=== PATIENT | female | born 1955 | race Caucasian/White ===

== ENCOUNTER → 2023-08-29 08:23 | Outpatient (REF) | payer OTHER, SELFPAY | LOC: RST 08:23 | PROVIDERS: ATTENDING PHYSICIAN Student in an Organized Health Care Education/Training Program | DX: R13.19 Other dysphagia (principal) | CPT/HCPCS: 92611 ==

== ENCOUNTER → 2023-08-29 08:24 | Outpatient (REF) | payer OTHER, SELFPAY | LOC: RAD 08:24 | PROVIDERS: ATTENDING PHYSICIAN Student in an Organized Health Care Education/Training Program | DX: E78.00 Pure hypercholesterolemia, unspecified (principal) | CPT/HCPCS: 74230; 75571 ==

== ENCOUNTER 2023-09-07 13:13 | Outpatient (RCR) | payer OTHER, SELFPAY | END 2023-09-07 23:59 | disposition home or self-care (01) | LOC: RPT 13:13 | PROVIDERS: ATTENDING PHYSICIAN Student in an Organized Health Care Education/Training Program | DX: R26.89 Other abnormalities of gait and mobility (principal); Z73.6 Limitation of activities due to disability; M25.552 Pain in left hip; M25.551 Pain in right hip | CPT/HCPCS: 97110; 97162 ==

== ENCOUNTER 2023-10-06 16:20 | Outpatient (RCR) | payer OTHER, SELFPAY | END 2023-10-06 23:59 | disposition home or self-care (01) | LOC: RPT 16:20 | PROVIDERS: ATTENDING PHYSICIAN Student in an Organized Health Care Education/Training Program | DX: M25.551 Pain in right hip (principal); R26.89 Other abnormalities of gait and mobility; Z73.6 Limitation of activities due to disability | CPT/HCPCS: 97110 ==

== ENCOUNTER → 2023-10-12 14:10 | Outpatient (REF) | payer OTHER, SELFPAY | LOC: WDC 14:10 | PROVIDERS: ATTENDING PHYSICIAN Student in an Organized Health Care Education/Training Program | DX: Z12.31 Encounter for screening mammogram for malignant neoplasm of breast (principal); Z80.3 Family history of malignant neoplasm of breast | CPT/HCPCS: 77063; 77067 ==

== ENCOUNTER 2023-10-28 10:47 | Outpatient (RCR) | payer OTHER, SELFPAY | END 2023-10-28 23:59 | disposition home or self-care (01) | LOC: RPT 10:47 | PROVIDERS: ATTENDING PHYSICIAN Student in an Organized Health Care Education/Training Program | DX: M25.551 Pain in right hip (principal); R26.89 Other abnormalities of gait and mobility; Z73.6 Limitation of activities due to disability | CPT/HCPCS: 97110; 97112 ==

== ENCOUNTER 2024-06-15 00:58 | Inpatient (IN) | payer OTHER, SELFPAY ==
[2024-06-14] VITALS (7 sets, daily range): BP systolic 133–149; BP diastolic 70–77; BMI 25.9
[2024-06-14 17:37] LABS: % Basophils 0.2 % (0-2); % Eosinophils 1.2 % (0-6); % Immature Granulocytes 0.3 % (0-0.5); % Lymphocytes 33.6 % (20.5-51.1); % Neutrophils 59.7 % (42.2-75.2); Absolute Eosinophils 0.1 10^3/uL (0-0.7); Absolute Lymphocytes 2.2 10^3/uL (1.2-3.4); Absolute Monocytes 0.3 10^3/uL (0.1-0.6); Absolute Neutrophils 3.9 10^3/uL (1.4-6.5); Hematocrit 36.5 % (37.0-47.0); Hemoglobin 12.1 g/dL (12.0-16.0); Mean Corp Hgb Conc. 33.2 g/dL (33.0-37.0); Mean Corpuscular Hgb 32.4 pg (27.0-31.0); Mean Corpuscular Volume 97.9 fL (81.0-99.0); Mean Platelet Volume 11.6 fL (7.4-10.4); Nucleated Red Blood Cells % 0 %; Platelet Count 177 10^3/uL (130-400); Red Blood Cell Count 3.73 10^6/uL (4.20-5.40); Red Cell Dist. Width 12.9 % (11.5-14.5); White Blood Cell Count 6.5 10^3/uL (4.8-10.8)
[2024-06-14 17:52] LABS: ALT (SGPT) 30 U/L (0-35); AST (SGOT) 52 U/L (14-36); Albumin 4.2 g/dl (3.5-5.0); Alkaline Phosphatase 181 U/L (38-126); Blood Urea Nitrogen 13 mg/dl (7-17); Calcium 9.2 mg/dl (8.4-10.2); Carbon Dioxide 27 mmol/L (22-30); Chloride 100 mmol/L (98-107); Estimated Creatinine Clearance 76 ml/min; Glucose 116 mg/dl (70-99); Potassium 3.6 mmol/L (3.5-5.1); Sodium 136 mmol/L (135-145); Total Bilirubin 0.6 mg/dl (0.2-1.3); Total Protein 6.9 g/dl (6.3-8.2); eGFR > 60.00
[2024-06-14 18:01] LABS: Troponin I < 0.012 ng/ml
--- NOTE | 2024-06-14 19:48 | ED.GENMED ---
History of Present Illness
<Val Beach DO - Last Filed: 06/18/24 13:43>
General
Chief Complaint: Chest Pain
Time Seen by Provider: 06/14/24 18:21
History of Present Illness
History of Present Illness:
68-year-old female with history of high cholesterol presenting to the emergency department for acute onset of chest pain. Patient reports that she was sitting down around 4 PM and had sternal chest pain, sharp in quality. She denies any known
gastric history or history of gastric reflux. She reports that she eats the same lunch every day, and does not that was causing her symptoms. She called the ambulance with concern for cardiac pathology. Medics administered Zofran, aspirin, nitro.
She reports after receiving medications, did have improvement of her symptoms. Denies any difficulty breathing or history of blood clots. Denies any known cardiac history. Denies recent fever or cough. Denies abdominal pain or GI symptoms or
additional acute medical complaints
Past History
<Val Beach DO - Last Filed: 06/18/24 13:43>
Past History
ED Past Medical History: Other (Seizure disorder)
ED Past Surgical History:
Social History
Tobacco: Former smoker
Alcohol: Occasional
Drug: None
Personal:
Living: with family
Phy Exam
<Val Beach DO - Last Filed: 06/18/24 13:43>
Physical Exam
Physical Exam:
General: Well-appearing, no clinical signs of dehydration, nontoxic and in no acute distress
HEENT: protecting airway
Neck: appears supple
CV: Normal heart rate, regular rhythm
Resp: No accessory muscle use, no increased work of breathing, lungs clear to auscultation bilaterally. Mild tenderness to the midsternal chest wall
Abd: Soft and non-distended, no tenderness
Extremities: No deformities, no swelling, no erythema
Neuro: alert, no focal neurologic deficit
: deferred
Rectal: deferred
Psych: Normal affect
Skin: Intact
Scores
<Val Beach, DO - Last Filed: 06/18/24 13:43>
Heart Score for Chest Pain Patients
STEMI patient?: No
History: Slightly or Non-Suspicious
ECG: Normal
Age: >/= 65 years
Risk Factors: 1 or 2 Risk Factors
Troponin: </= Normal Limit
Heart Score for Chest Pain Patients: 3
Heart Score Risk: 2.5% MACE over next 6 weeks
<Carlos Denise, DO - Last Filed: 06/15/24 00:07>
Heart Score for Chest Pain Patients
Heart Score for Chest Pain Patients: 3
Heart Score Risk: 2.5% MACE over next 6 weeks
Course
<Val Beach, DO - Last Filed: 06/18/24 13:43>
Orders/Labs/Results
Orders:
Orders
06/14/24 17:17
EKG [Electrocardiogram (*1)] Urgent
Reason for Study: Chest Pain
EKG- Treatment ONCE
06/14/24 17:24
Cardiac Monitoring- Treatment ONCE
06/14/24 17:28
Complete Blood Count/With Diff Urgent
Comprehensive Metabolic Panel Urgent
Lipase Urgent
Comment: ADD ON
Troponin I Urgent
06/14/24 18:52
CR Chest - 2 Views Urgent
Comment:
Reason For Exam: chest pain
06/14/24 18:53
EKG- Treatment ONCE
06/14/24 20:25
Electrocardiogram (*1) Urgent
Reason for Study: Chest Pain
06/14/24 20:43
Troponin I Urgent
06/14/24 22:10
Add On- LAB Urgent
Tests Added?: lipase
06/14/24 22:11
CT Abd/pelvis W Iv Cont Urgent
Comment:
Reason For Exam: pain
Morphine Sulfate 4 mg IV NOW STA
Pantoprazole [Protonix IV] 40 mg IV NOW STA
06/15/24 00:06
0.9% Sodium Chloride 1000 ml [Nss] 1,000 ml IV BOLUS
06/15/24 00:47
Admit/Transfer Patient As Directed
Co-Sign Provider:
Level of Care: Inpatient admission
Assign to:: Medical/Surgical
Physician / Group: Remig[facility]
Diagnosis: Acute Pancreatitis
Reason for Hospitalization: Acute Pancreatitis
Expected length of stay greater than two midnights?: Yes
ELOS- Estimated Length of Stay in days: 2
I certify the patient meets the requirements for IP care: Yes
PRN Pain Medication Management As Directed
May give lesser potent ordered pain med per pt: Yes
preference::
Protocol:: Medication orders for pain may be administered in a
manner that supports deferring to patient preference
when the pt is:
- Requesting an ordered lesser potent pain medication.
Least to most potent pain medications are defined
as: acetaminophen < NSAID < tramadol < opioids
(morphine, oxycodone, hydromorphone).
- Requesting a lesser dose of the same medication IF
ORDERED.
- Requesting a less intrusive route of administration
if both routes are prescribed by the provider (PO <
IV).
06/15/24 00:48
Code Status As Directed
Resuscitation Status: Full Code
06/15/24 01:43
Acetaminophen [Tylenol] 650 mg PO Q4HPRN PRN
HYDROmorphone [Dilaudid] 0.5 mg IV Q4HPRN PRN
Lactated Ringers [Lr] 1,000 ml IV 150 mls/hr
Ondansetron Injectable [Zofran] 4 mg IV Q6HPRN PRN
06/15/24 01:43
Consult Notification Routine
Specialty to Notify: Gastroenterology
Date consulting provider notified: 06/15/24
Time consulting provider notified: 07:05
Notified:: Provider
Comment: Dr. Gore notified via tiger text
GASTROINTESTINAL CONSULT Routine
Consulting Provider: Ross Gore
Was physician already notified: No
Reason for consult: Pancreatitis
Activity As Directed
Activity Level: Ambulate
I/O [Intake/ Output] As Directed
Frequency: Per unit guidelines
Pneumatic Compression Sleeves As Directed
Type: Knee high
Vital Signs As Directed
Frequency: Per unit guidelines
Weight As Directed
Frequency: Daily
Oxygen Therapy [O2 Therapy] [RESP] Routine
Titrate/Wean O2 to maintain O2 sat greater than (%): 94
DX Deep Vein Thrombosis Video Routine
06/15/24 Breakfast
Clear Liquid
At Your Request: Full Participation
06/15/24 07:46
Complete Blood Count/No Diff IN AM
06/15/24 22:00
Phenobarbital [Luminal] 129.6 mg PO HS
Abnormal Lab Results
06/14/24
17:28
RBC 3.73 L 10^6/uL
(4.20-5.40)
Hct 36.5 L %
(37.0-47.0)
MCH 32.4 H pg
(27.0-31.0)
MPV 11.6 H fL
(7.4-10.4)
Glucose 116 H mg/dl
(70-99)
AST 52 H U/L
(14-36)
Alkaline Phosphatase 181 H U/L
(38-126)
Lipase > 4000 H* U/L
(23-300)
03/06/25 17:28
06/14/24 17:28
Vital Signs
Initial and Last Documented VS:
Initial Vital Signs
Pulse Resp Pulse Ox
73 18 97
06/14/24 17:18 06/14/24 17:18 06/14/24 17:18
Last Documented Vital Signs
Temp Pulse Resp BP Pulse Ox
98.2 F 104 18 119/83 94
06/18/24 08:00 06/18/24 08:00 06/18/24 08:00 06/18/24 08:00 06/18/24 08:00
<Carlos Denise, DO - Last Filed: 06/15/24 00:07>
Orders/Labs/Results
Orders:
Orders
06/14/24 17:17
EKG [Electrocardiogram (*1)] Urgent
Reason for Study: Chest Pain
EKG- Treatment ONCE
06/14/24 17:24
Cardiac Monitoring- Treatment ONCE
06/14/24 17:28
Complete Blood Count/With Diff Urgent
Comprehensive Metabolic Panel Urgent
Lipase Urgent
Comment: ADD ON
Troponin I Urgent
06/14/24 18:52
CR Chest - 2 Views Urgent
Comment:
Reason For Exam: chest pain
06/14/24 18:53
EKG- Treatment ONCE
06/14/24 20:25
Electrocardiogram (*1) Urgent
Reason for Study: Chest Pain
06/14/24 20:43
Troponin I Urgent
06/14/24 22:10
Add On- LAB Urgent
Tests Added?: lipase
06/14/24 22:11
CT Abd/pelvis W Iv Cont Urgent
Comment:
Reason For Exam: pain
Morphine Sulfate 4 mg IV NOW STA
Pantoprazole [Protonix IV] 40 mg IV NOW STA
06/15/24 00:06
0.9% Sodium Chloride 1000 ml [Nss] 1,000 ml IV BOLUS
06/15/24 00:47
Admit/Transfer Patient As Directed
Co-Sign Provider:
Level of Care: Inpatient admission
Assign to:: Medical/Surgical
Physician / Group: Remigio
Diagnosis: Acute Pancreatitis
Reason for Hospitalization: Acute Pancreatitis
Expected length of stay greater than two midnights?: Yes
ELOS- Estimated Length of Stay in days: 2
I certify the patient meets the requirements for IP care: Yes
PRN Pain Medication Management As Directed
May give lesser potent ordered pain med per pt: Yes
preference::
Protocol:: Medication orders for pain may be administered in a
manner that supports deferring to patient preference
when the pt is:
- Requesting an ordered lesser potent pain medication.
Least to most potent pain medications are defined
as: acetaminophen < NSAID < tramadol < opioids
(morphine, oxycodone, hydromorphone).
- Requesting a lesser dose of the same medication IF
ORDERED.
- Requesting a less intrusive route of administration
if both routes are prescribed by the provider (PO <
IV).
06/15/24 00:48
Code Status As Directed
Resuscitation Status: Full Code
06/15/24 01:43
Acetaminophen [Tylenol] 650 mg PO Q4HPRN PRN
HYDROmorphone [Dilaudid] 0.5 mg IV Q4HPRN PRN
Lactated Ringers [Lr] 1,000 ml IV 150 mls/hr
Ondansetron Injectable [Zofran] 4 mg IV Q6HPRN PRN
06/15/24 01:43
Consult Notification Routine
Specialty to Notify: Gastroenterology
Date consulting provider notified: 06/15/24
Time consulting provider notified: 07:05
Notified:: Provider
Comment: Dr. Gore notified via tiger text
GASTROINTESTINAL CONSULT Routine
Consulting Provider: Ross Gore
Was physician already notified: No
Reason for consult: Pancreatitis
Activity As Directed
Activity Level: Ambulate
I/O [Intake/ Output] As Directed
Frequency: Per unit guidelines
Pneumatic Compression Sleeves As Directed
Type: Knee high
Vital Signs As Directed
Frequency: Per unit guidelines
Weight As Directed
Frequency: Daily
Oxygen Therapy [O2 Therapy] [RESP] Routine
Titrate/Wean O2 to maintain O2 sat greater than (%): 94
DX Deep Vein Thrombosis Video Routine
06/15/24 Breakfast
Clear Liquid
At Your Request: Full Participation
06/15/24 07:46
Complete Blood Count/No Diff IN AM
06/15/24 22:00
Phenobarbital [Luminal] 129.6 mg PO HS
Abnormal Lab Results
06/14/24
17:28
RBC 3.73 L 10^6/uL
(4.20-5.40)
Hct 36.5 L %
(37.0-47.0)
MCH 32.4 H pg
(27.0-31.0)
MPV 11.6 H fL
(7.4-10.4)
Glucose 116 H mg/dl
(70-99)
AST 52 H U/L
(14-36)
Alkaline Phosphatase 181 H U/L
(38-126)
Lipase > 4000 H* U/L
(23-300)
06/14/24 17:28
06/14/24 17:28
Vital Signs
Initial and Last Documented VS:
Initial Vital Signs
Pulse Resp Pulse Ox
73 18 97
06/14/24 17:18 03/06/25 17:18 06/14/24 17:18
Last Documented Vital Signs
Temp Pulse Resp BP Pulse Ox
98.2 F 104 18 119/83 94
06/18/24 08:00 06/18/24 08:00 06/18/24 08:00 06/18/24 08:00 06/18/24 08:00
<Val Beach DO - Last Filed: 06/18/24 13:43>
MDM/Problems Addressed
MDM/Problems Addressed:
68-year-old female with history of high cholesterol presenting for acute onset of midsternal chest pain. Vital signs on arrival are normal.
On exam patient is resting comfortably, no acute distress. Unremarkable cardiac and pulmonary exam. Patient had EKG obtained on arrival, nonischemic, unchanged from prior EKG imaging. Patient with minimal cardiac risk factors, however slightly
concerning story. Labs obtained prior to my assessment, undetectable troponin. Given onset of symptoms, will plan for repeat troponin and EKG as well as chest x-ray. Patient's labs otherwise unremarkable. No PE risk factors. Patient afebrile,
no infectious symptoms or concern for systemic infectious process. Blood pressure within normal limits, patient's pain controlled, without concern for aortic catastrophe or abnormality.
20:30 - Patient signed out to incoming physician pending second troponin and reassessmemt.
<Val Beach DO - Last Filed: 06/18/24 13:43>
*Critical Care Note
Total Time (30-74mins, 75-104mins- exclusive of procedures): Not Applicable
<Carlos Denise DO - Last Filed: 06/15/24 00:07>
Update Note
Update Note:
10:12 PM signed out pending second troponin, patient reevaluated now states the pain is radiating into her lower abdomen labs are noted will add lipase, 2 undetectable troponins 2 nonischemic EKGs, give her PPI morphine check CT scan she still has
her gallbladder and her appendix
11:[address] pending will require admission patient and spouse in agreement
ED Attending Note
<Val Beach DO - Last Filed: 06/18/24 13:43>
-
Portions of this chart may have been created with voice recognition software.� Occasional wrong word or��sound alike� substitutions may have occurred due to the inherent limitations of voice recognition software.
Discharge Plan
Departure
Patient Disposition: Admit
Date of Disposition: 06/15/24
Time of Disposition: 00:06
Presentation/result/management discussed w/ accepting MD/DO: Hospitalist
Patient with high blood pressure during this ER visit?: No
Condition: Fair
Discharge Problem:
Acute pancreatitis
Interventions
Interventions:
*Risk Screen - Suicide Last Done: 06/14/24 17:23
*General Assessment Last Done: 06/14/24 17:23
*Neglect/Abuse Screening Last Done: 06/14/24 17:23
*ED- Fall Risk Assessment Last Done: 06/15/24 01:09
*ED COVID-19 Vaccine History Last Done: 06/15/24 01:09
*Nursing Disposition Last Done: 06/15/24 01:46
ED- Cardiac Assessment Last Done: 06/14/24 19:16
Discharge Date and Time
Discharge Date/Time: 06/15/24 01:47
[2024-06-14 21:21] LABS: Troponin I < 0.012 ng/ml
[2024-06-14] MEDS: MORPHINE SULFATE 4 MG IV (22:15)
[2024-06-14] MEDS: PROTONIX IV 40 MG IV (22:15)
[2024-06-14 23:09] LABS: Lipase > 4000 U/L (23-300)
[2024-06-15] VITALS (8 sets, daily range): BP systolic 56–155; BP diastolic 40–75; PULSE 70–110; O2SAT 92; BMI 24.7
[2024-06-15] MEDS: NSS 1000 IV (00:19)
--- NOTE | 2024-06-15 00:49 | HPS.HSE ---
Family Physician
-
Family Physician: * NONE
Chief Complaint
-
Abd Pain
History of Present Illness
Patient is a 68y F with PMH significant for seizure disorder who presents to ED complaining of abdominal pain. Patient states that she developed sudden onset fo severe epigastric abdominal pain around 3 PM today. She had diaphoresis,
tremulousness, and radiation of the pain into the back / flanks. She denies any N/V. No fevers. Patient denies any prior h/o similar symptoms or episodes.
She has no known history of GB disease. She does not drink alcohol on a regular basis (had a single glass of wine last PM. Does not drink daily).
Patient notes that she (and her ) had GI illness about 2 weeks ago consisting of 48 hours of N/V/D.
Medical History
Past Medical History
Past Medical History: Reports Other
Additional Past Medical History:
Seizure Disorder (most recent seizure 1980s)
Past Surgical History: Reports Other
Additional Past Surgical History:
Carpal Tunnel Repair
Social History
Tobacco: Non-smoker
Alcohol: Occasional
Drug: None
Family History
Family History: Not pertinent
Allergies / Home Medications
Allergies reflects when Allergies were last updated in [facility].
Home Medications with original date entered in [facility]
Allergy/Medication List:
Allergies
Allergy/AdvReac Type Severity Reaction Status Date / Time
diphenhydramine HCl Allergy Unknown Verified 12/21/21 09:36
[From Benadryl]
Home Medications
fluticasone propionate 50 mcg/actuation nasal spray,suspension 1 spray intranasal HS 06/14/24
phenobarbital 64.8 mg tablet 129.6 mg PO HS 06/14/24
therapeutic multivitamin 1 tab PO QPM 06/14/24
Review of Systems
-
History Source: Patient
A 12 point ROS was completed and negative except as noted: Yes
Constitutional: Denies Fever, Fatigue or Chills
EENT: Denies Sore Throat
Respiratory: Denies Cough or Trouble Breathing
Cardiac: Denies Chest Pain or Palpitations
Abdomen/GI: Reports Abdominal Pain; Denies Nausea, Vomiting or Diarrhea
: Reports Flank Pain; Denies Dysuria or Frequency
Neurological: Denies Dizzy or Headache
Psych: Denies Depression or Anxiety
Physical Exam
Vital Signs
Vital Signs
Temp Pulse Resp BP Pulse Ox
98.6 F 84 12 139/71 96
06/14/24 19:16 06/14/24 22:05 06/14/24 22:05 06/15/24 00:19 06/15/24 00:20
Physical Exam
General: Other (68y F in no acute distress.)
HEENT: Moist mucous membranes and PERRLA
Respiratory: Clear; No Wheezes, Rales or Rhonchi
Cardiac: S1/S2 and Regular Rhythm; No Murmur
GI: Soft, Non Distended, Normal Bowel Sounds and Other (Mildly, diffusely tender.)
Musculoskeletal: No Clubbing, No Cyanosis and No Edema
Neuro: AO x 3
Laboratory Results
-
06/14/24 17:28
06/14/24 17:28
Laboratory Results
Total Bilirubin 0.6 mg/dl (0.2-1.3) 06/14/24 17:28
AST 52 U/L (14-36) H 06/14/24 17:28
ALT 30 U/L (0-35) 06/14/24 17:28
Alkaline Phosphatase 181 U/L (38-126) H 06/14/24 17:28
Troponin I < 0.012 ng/ml 06/14/24 20:43
Lipase > 4000 U/L (23-300) H* 06/14/24 17:28
Impression/Plan
-
A/P: Patient is a 68y F with PMH significant for seizure disorder who presents to ED complaining of abdominal pain.
Acute Pancreatitis
- Admit for further evaluation and treatment.
- Clear liquids for now.
- Pain control, IVFs, etc.
- Patient does not have significant history of alcohol use / abuse.
- CT without evidence of gallstones - check US for further evaluation.
- Follow for clinical improvement.
- GI evaluation for additional recommendations.
Seizure Disorder
- Stable. No seizure episodes since .
- Continue current phenobarb regimen without changes.
DVT Prophylaxis: SCDs
Code Status: Full
[2024-06-15] MEDS: LUMINAL 129.6 MG PO ×2 (02:06→21:24)
[2024-06-15] MEDS: DILAUDID 0.5 MG IV ×6 (02:19→23:37)
[2024-06-15] MEDS: LR 1000 IV ×5 (03:26→23:06)
--- NOTE | 2024-06-15 04:13 | PTCARENOTE ---
admitted to room 1142-1- ax3 ambulates in room abd pain medicated with Dilaudid- pt was concerned about missing her seizure med- order received to give this shift- fluids running per orderers
--- NOTE | 2024-06-15 06:21 | PTCARENOTE ---
pt with pain that required additional dilaudid dose ordered by proof press operator see mar
[2024-06-15] MEDS: PROTONIX IV 40 MG IV (08:10)
[2024-06-15 08:11] LABS: Hematocrit 37.4 % (37.0-47.0); Hemoglobin 12.5 g/dL (12.0-16.0); Mean Corp Hgb Conc. 33.4 g/dL (33.0-37.0); Mean Corpuscular Hgb 32.6 pg (27.0-31.0); Mean Corpuscular Volume 97.4 fL (81.0-99.0); Platelet Count 173 10^3/uL (130-400); Red Blood Cell Count 3.84 10^6/uL (4.20-5.40); Red Cell Dist. Width 13.1 % (11.5-14.5); White Blood Cell Count 8.4 10^3/uL (4.8-10.8)
[2024-06-15 08:34] LABS: ALT (SGPT) 33 U/L (0-35); AST (SGOT) 41 U/L (14-36); Albumin 3.6 g/dl (3.5-5.0); Alkaline Phosphatase 151 U/L (38-126); Blood Urea Nitrogen 9 mg/dl (7-17); Carbon Dioxide 27 mmol/L (22-30); Chloride 101 mmol/L (98-107); Direct Bilirubin 0.1 mg/dl (0.0-0.4); Estimated Creatinine Clearance 76 ml/min; Glucose 112 mg/dl (70-99); Potassium 4.1 mmol/L (3.5-5.1); Sodium 136 mmol/L (135-145); Total Bilirubin 0.7 mg/dl (0.2-1.3); Total Protein 6.2 g/dl (6.3-8.2); eGFR > 60.00
--- NOTE | 2024-06-15 08:56 | CON.GI ---
Addendum entered and electronically signed by Ross Gore MD 06/15/24 10:46:
I saw and examined the patient.
The DRY MAN or PA's note was reviewed and I agree with the note.
Comment:
Pt is a 68 y/o with acute abd pain. hx of nsaids but 3 weeks ago. no n/v. feels better now
abd: epigastric tenderness
ct scan: peripancreatic inflammation
labs with only mildly elevated alp/ast
impression:
abd pain
pancreatitis
plan:
IVF
pain control
if continues to improve can have clears
u/s
if all normal and pain continues then egd
follow lipase
Original Note:
Consultation
-
Date/Time Consultation Requested: 06/15/24142
Date/Time Consultation Performed: 06/15/24814
Requesting Provider: Dr. Flood
Performing Provider: Dr. Gore / Daya Yan PA-C
Reason for Consultation: abdominal pain
Medical History
Chief Complaint / HPI
Chief Complaint: abdominal pain
History of Present Illness:
This is a 68 year old female with a past medical history of seizure disorder who developed sudden onset of severe epigastric pain yesterday while at rest. The pain radiated into her back and flanks. +diaphoresis. She did not have any chest pain or
SOB but questioned whether she was having a heart attack. No associated nausea, vomiting, fever, chills or diarrhea. She has never experienced anything like this. Initial workup in the ER included labs showing normal WBC count (8.4) and stable
hemoglobin (12.5) with normocytic indices. LFTs showed mildly elevated AST (52), normal ALT (30), T bili (0.7) and elevated alk phos (181), which she states is a chronically mildly elevated due to phenobarbital. Lipase was >[address] imaging
revealed peripancreatic inflammatory changes consistent with acute pancreatitis. No pancreatic fluid collection noted. She denies a prior history of pancreatitis. She has no known gallstones and denies any new medications or supplements. She does
not smoke or use drugs. She does drink alcohol, about 1 glass of wine/night. US of the abdomen has been ordered, still pending.
Past Medical History
Past Medical History: Seizures ((stable, follows with Neurology, on phenobarbital and states last seizure was >40 years ago))
Past Surgical History: and Other (carpal tunnel repair)
Social History
Tobacco: Non-Smoker
Alcohol: Daily (1 glass of wine/day)
Drug: None
Personal:
Living: With Family
Family History
Family History: Other (no family history of GI malignancies)
Allergies / Home Medications
Allergy/AdvReac Type Severity Reaction Status Date / Time
diphenhydramine HCl Allergy Unknown Verified 12/21/21 09:36
[From Benadryl]
�Medication �Instructions �Recorded
fluticasone propionate 50 1 spray intranasal HS 06/14/24
mcg/actuation nasal
spray,suspension
phenobarbital 64.8 mg tablet 129.6 mg PO HS 06/14/24
therapeutic multivitamin 1 tab PO QPM 06/14/24
Review of Systems
-
History Source: Patient
All other systems: A 12 pt ROS was Negative except as stated above in HPI
Vital Signs
Temp Pulse Resp BP Pulse Ox
98.7 F 76 16 107/60 95
06/15/24 07:10 06/15/24 07:28 06/15/24 07:10 06/15/24 07:28 06/15/24 07:10
Physical Exam
Exam
General: Well Developed, Well Nourished and No Apparent Distress
Respiratory: Clear
Cardiac: Regular Rhythm
GI: Soft, Non Distended, Normal Bowel Sounds and Tender (+mild epigastric tenderness)
Skin: Warm and Dry
Neuro: AO x 3
Psych: Calm
Results
WBC 8.4 10^3/uL (4.8-10.8) 06/15/24 07:46
Hgb 12.5 g/dL (12.0-16.0) 06/15/24 07:46
Hct 37.4 % (37.0-47.0) 06/15/24 07:46
MCV 97.4 fL (81.0-99.0) 06/15/24 07:46
Plt Count 173 10^3/uL (130-400) 06/15/24 07:46
Absolute Neuts (auto) 3.9 10^3/uL (1.4-6.5) 06/14/24 17:28
Sodium 136 mmol/L (135-145) 06/15/24 07:46
Potassium 4.1 mmol/L (3.5-5.1) 06/15/24 07:46
Chloride 101 mmol/L (98-107) 06/15/24 07:46
Carbon Dioxide 27 mmol/L (22-30) 06/15/24 07:46
BUN 9 mg/dl (7-17) 06/15/24 07:46
Creatinine 0.5 mg/dL (0.6-1.0) L 06/15/24 07:46
Calcium 9.0 mg/dl (8.4-10.2) 06/15/24 07:46
Total Bilirubin 0.7 mg/dl (0.2-1.3) 06/15/24 07:46
AST 41 U/L (14-36) H 06/15/24 07:46
ALT 33 U/L (0-35) 06/15/24 07:46
Alkaline Phosphatase 151 U/L (38-126) H 06/15/24 07:46
Lipase > 4000 U/L (23-300) H* 06/14/24 17:28
Diagnostic Image Results:
CT Abdomen/pelvis 06/14/24:
Peripancreatic inflammatory changes compatible with acute pancreatitis. No abnormal well-formed pancreatic/peripancreatic fluid collection.
Left renal simple cysts. Additional bilateral subcentimeter low-attenuation renal lesions too small to characterize.
Prior GI Procedures:
EGD: never
Colonoscopy: negative Cologuard ~3 years ago
Assessment / Plan
-
68 year old female with a history of seizure disorder admitted after sudden onset of severe epigastric pain, with her first episode of acute pancreatitis. Lipase was >[address] imaging revealed peripancreatic inflammatory changes consistent with
acute pancreatitis, without any pancreatic fluid collection noted. LFTs showed mildly elevated AST (52), normal ALT (30), T bili (0.7) and elevated alk phos (181), which she states is a chronically mildly elevated due to phenobarbital. She has no
known gallstones. No new medications or supplements. She does not smoke or use drugs. She does drink alcohol, about 1 glass of wine/night.
IMPRESSION / PLAN:
Acute pancreatitis, initial episode - secondary to gallstones vs ETOH (although she denies excessive use) vs medications vs autoimmune vs ?
- continue clear liquids
- continue IV fluids
- antiemetics and pain management per hospitalist
- trend labs (CBC, LFTs)
- await US to assess for underlying biliary issue - rule out gallstones
- if US negative, order IgG4 to rule out autoimmune pancreatitis
Elevated alkaline phosphatase
- chronic per patient, due to phenobarbital
- will continue to trend LFTs
Other medical issues managed per hospitalist.
-
-
Thank you for consultation and allowing me to participate in the patient's care. Please call the provisioning specialist GI physician during the after hours with any questions or concerns.
--- NOTE | 2024-06-15 09:05 | W.PN.HOSP.TC ---
Today's Communication/Plan
-
Bowel rest
IVF ( high rate)
IF PPI
Pain medicine
Can give sips
Assessment / Plan
Assessment / Plan
Physical Exam
General: Other (68y F in no acute distress.)
HEENT: Moist mucous membranes and PERRLA
Respiratory: Clear; No Wheezes, Rales or Rhonchi
Cardiac: S1/S2 and Regular Rhythm; No Murmur
GI: Soft, Non Distended, Normal Bowel Sounds and epigasrtic/ mid abdomen tenderness ( mild)
Musculoskeletal: No Clubbing, No Cyanosis and No Edema
Neuro: AO x 3, she followed commands.
Psych: calm
Patient is a 68y F with PMH significant for seizure disorder who presents to ED complaining of abdominal pain.
Acute Pancreatitis
She denies nausea
still abdominal pain
keep bowel rest
given higher rate IVF
Add IV PPI
No history of recent new medications
No fever or leukocytosis
Patient does not have significant history of alcohol use / abuse.
CT without evidence of gallstones -
- GI evaluation for additional recommendations.
# Hypotension due to poor oral intake
given Bolus
Seizure Disorder
- Stable. No seizure episodes since .
- Continue current phenobarb regimen without changes.
DVT Prophylaxis: SCDs
Code Status: Full
Total time spent to see the patient, examine the patient, review data and lab results, discuss treatment plan with patient and nursing staff around 55 minutes
Anticipated Discharge: 24 - 48 hours
Subjective/Interval History
-
Date of Service: June 15, 2024
Objective Data
-
Labs:
Laboratory Results
06/15/24
07:46
WBC 8.4
Hgb 12.5
Hct 37.4
Plt Count 173
Sodium 136
Potassium 4.1
Chloride 101
Carbon Dioxide 27
BUN 9
Creatinine 0.5 L
Glucose 112 H
Calcium 9.0
Total Bilirubin 0.7
AST 41 H
ALT 33
Alkaline Phosphatase 151 H
Vital Signs:
Vital Signs
Temp Pulse Resp BP Pulse Ox
98.7 F 76 16 107/60 95
06/15/24 07:10 06/15/24 07:28 06/15/24 07:10 06/15/24 07:28 06/15/24 07:10
I&O
06/14/24 06/15/24 06/16/24
06:59 06:59 06:59
Intake Total 1240 / 1240
Balance 1240 / 1240
[2024-06-15 09:19] LABS: Hepatitis C Antibody Negative (Negative)
--- NOTE | 2024-06-15 09:58 | CM ---
Patient seen at bedside. Patient stated that she lives with in a split level home. Patient with 6 steps to enter. Patient PCP is Dr. Santos and she uses the [facility] on [address] in [place]. Patient stated that she plans to go home
and is uncertain of her needs for VN at discharge. CM will continue to follow for discharge planning needs.
Plan; home with VN vs home with no needs.
[2024-06-16] MEDS: LR 1000 IV ×4 (03:46→22:46)
[2024-06-16] MEDS: DILAUDID 0.5 MG IV ×4 (05:00→21:32)
[2024-06-16 06:00] VITALS: BMI 24.4
[2024-06-16 06:28] LABS: Blood Urea Nitrogen 7 mg/dl (7-17); Calcium 8.6 mg/dl (8.4-10.2); Carbon Dioxide 23 mmol/L (22-30); Chloride 103 mmol/L (98-107); Estimated Creatinine Clearance 76 ml/min; Glucose 72 mg/dl (70-99); Lipase 211 U/L (23-300); Potassium 3.9 mmol/L (3.5-5.1); Sodium 133 mmol/L (135-145); eGFR > 60.00
--- NOTE | 2024-06-16 06:45 | W.PN.GI.CBS2 ---
Addendum entered and electronically signed by Ross Gore MD 06/16/24 09:26:
I saw and examined the patient.
The DAY CARE AIDE or PA's note was reviewed and I agree with the note.
Comment:
Pt w/o significant abdominal pain. back pain due to bed
abd: soft, nontender
impression:
pancreatitis improving
plan:
clear liquids and if tolerated advance diet to full at lunch and advance as tolerated for goal of low fat diet (order in)
await u/s
Original Note:
Today's Communication / Plan
-
Advance clear liquids
Await US
Assessment / Plan
-
68 year old female with a history of seizure disorder admitted after sudden onset of severe epigastric pain, with her first episode of acute pancreatitis. Lipase was >[address] imaging revealed peripancreatic inflammatory changes consistent with
acute pancreatitis, without any pancreatic fluid collection noted. LFTs showed mildly elevated AST (52), normal ALT (30), T bili (0.7) and elevated alk phos (181), which she states is a chronically mildly elevated due to phenobarbital. She has no
known gallstones. No new medications or supplements. She does not smoke or use drugs. She does drink alcohol, about 1 glass of wine/night.
IMPRESSION / PLAN:
Acute pancreatitis, initial episode - secondary to gallstones vs ETOH (although she denies excessive use) vs medications vs autoimmune vs ?
- clear liquid diet
- continue IV fluids
- antiemetics and pain management per hospitalist
- trend labs (CBC, LFTs)
- await US to assess for underlying biliary issue - rule out gallstones
- if US negative, order IgG4 to rule out autoimmune pancreatitis
Elevated alkaline phosphatase
- chronic per patient, due to phenobarbital
- will continue to trend LFTs
Subjective
Subjective
Date of Service: June 16, 2024
Feeling better, the upper abdominal pain has decreased. No nausea, vomiting. She did not yet start on clears.
She does complain of low back pain, bilaterally. No urinary sx. She thinks it may be from sleeping in the hospital bed.
Objective
Data Reviewed
Laboratory Data:
Laboratory Results
06/15/24 07:46
06/16/24 05:14
Laboratory Results
Total Bilirubin 0.7 mg/dl (0.2-1.3) 06/15/24 07:46
AST 41 U/L (14-36) H 06/15/24 07:46
ALT 33 U/L (0-35) 06/15/24 07:46
Alkaline Phosphatase 151 U/L (38-126) H 06/15/24 07:46
Lipase 211 U/L (23-300) 06/16/24 05:14
Vital Signs and I&O:
Vital Signs
Temp Pulse Resp BP Pulse Ox
99.9 F 98 16 129/67 93
06/15/24 23:15 06/15/24 23:15 06/15/24 23:15 06/15/24 23:15 06/15/24 23:15
I&O
06/14/24 06/15/24 06/16/24
06:59 06:59 06:59
Intake Total 1240 / 1240 4400 / 4400
Balance 1240 / 1240 4400 / 4400
Physical Exam
Physical Exam
HEENT: Anicteric
Cardiology: Normal Sinus Rhythm
Pulmonary: Clear
GI: Soft, Non Distended, Non Tender and Normal Bowel Sounds
Neuro: Non Focal
[2024-06-16 07:39] VITALS: BP 107/55
[2024-06-16] MEDS: PROTONIX IV 40 MG IV (08:12)
--- NOTE | 2024-06-16 09:03 | W.PN.HOSP.TC ---
Today's Communication/Plan
-
Lower rate of IV fluid, start liquid diet, monitor
Likely discharge in a.m.
Assessment / Plan
Assessment / Plan
Physical Exam
General: Other (68y F in no acute distress.)
HEENT: Moist mucous membranes and PERRLA
Respiratory: Clear; No Wheezes, Rales or Rhonchi
Cardiac: S1/S2 and Regular Rhythm; No Murmur
GI: Soft, Non Distended, Normal Bowel Sounds and epigasrtic/ mid abdomen tenderness ( mild)
Musculoskeletal: No Clubbing, No Cyanosis and No Edema
Neuro: AO x 3, she followed commands.
Psych: calm
Patient is a 68y F with PMH significant for seizure disorder who presents to ED complaining of abdominal pain.
Acute Pancreatitis
She denies nausea
Much less abdominal pain. No fever. No leukocytosis. Nontoxic-appearing
keep bowel rest
given higher rate IVF, will lower it
Add IV PPI
Order US by GI, normal bilirubin.
No history of recent new medications
No fever or leukocytosis
Patient does not have significant history of alcohol use / abuse.
CT without evidence of gallstones -
- GI evaluation for additional recommendations.
# Hypotension due to poor oral intake
given Bolus , now better BP.
# Hyponatremia, mild
cut back on IVF
# Seizure Disorder
- Stable. No seizure episodes since .
- Continue current phenobarb regimen without changes.
DVT Prophylaxis: SCDs
Code Status: Full
Total time spent to see the patient, examine the patient, review data and lab results, discuss treatment plan with patient and nursing staff around 55 minutes
Anticipated Discharge: Within 24 hours
Subjective/Interval History
-
Date of Service: June 16, 2024
Less pain in abdomen
No nausea
No chills
Objective Data
-
Labs:
Laboratory Results
06/16/24
05:14
Sodium 133 L
Potassium 3.9
Chloride 103
Carbon Dioxide 23
BUN 7
Creatinine 0.5 L
Glucose 72
Calcium 8.6
Vital Signs:
Vital Signs
Temp Pulse Resp BP Pulse Ox
99.2 F 94 18 107/55 93
06/16/24 07:39 06/16/24 07:39 06/16/24 07:39 06/16/24 07:39 06/16/24 07:39
I&O
06/15/24 06/16/24 06/17/24
06:59 06:59 07:59
Intake Total 1240 / 1240 4400 / 4400
Balance 1240 / 1240 4400 / 4400
[2024-06-16] MEDS: LR IV ×6 (09:26→09:27)
--- NOTE | 2024-06-16 09:49 | CM ---
CM reviewed medical records. Plan for discharge in AM.
PLAN: home no needs.
[2024-06-16 15:14] VITALS: BP 132/69
[2024-06-16] MEDS: TORADOL 30 MG IV (16:30)
[2024-06-16 19:00] VITALS: BP 155/86
--- NOTE | 2024-06-16 20:14 | W.PN.UPDATE ---
Update Note
Progress Note Update
Patient complained of SOB and epigastric pain, and feels bloated. Patient started on diet today.
SPo2 94% RA, afebrile temp 98.2,hr 102, RR18 BP155/86.
Covid test is neg on 06/15.
Neg troponin x2 on admission
R lung noted with wheezing during the exam. Patient denied history of asthma.
Stat chest x-ray and Xopenex PRN nebs ordered.
+bowel sounds, abdomen nontender, soft. Simethicone ordered.
[2024-06-16] MEDS: MYLICON 80 MG PO (20:24)
[2024-06-16] MEDS: XOPENEX 0.63 MG INHALANT SOLUTION INH (20:48)
--- NOTE | 2024-06-16 21:14 | PTCARENOTE ---
Pt c/o epigastric pressure and difficulty catching her breath. Stated it started after eating dinner. R base lung diminished. Pt walked in hallway and belched several times-symptoms slightly better but still there. House AGRICULTURE INSPECTOR up to see pt. Pt med
with simethicone. CXR done. Pt placed on O2 2L NC. Neb given. Symptoms improved at this time. Will continue to monitor.
[2024-06-16] MEDS: LUMINAL 129.6 MG PO (21:32)
[2024-06-16 23:00] VITALS: BP 114/55
[2024-06-17] MEDS: DILAUDID 0.5 MG IV ×3 (01:00→22:16)
[2024-06-17 05:02] VITALS: BMI 24.9
--- NOTE | 2024-06-17 06:06 | W.PN.GI.CBS2 ---
Today's Communication / Plan
-
hold on full liquids
Assessment / Plan
-
68 year old female with a history of seizure disorder admitted after sudden onset of severe epigastric pain, with her first episode of acute pancreatitis. Lipase was >[address] imaging revealed peripancreatic inflammatory changes consistent with
acute pancreatitis, without any pancreatic fluid collection noted. LFTs showed mildly elevated AST (52), normal ALT (30), T bili (0.7) and elevated alk phos (181), which she states is a chronically mildly elevated due to phenobarbital. She has no
known gallstones. No new medications or supplements. She does not smoke or use drugs. She does drink alcohol, about 1 glass of wine/night.
IMPRESSION / PLAN:
Acute pancreatitis, unclear etiology, ultrasound negative for stones
- hold on full liquids
- continue IV fluids
- need accurate urine outputs (d/w nurse)
- reorder IgG4 and trigylcerides
- simethicone and suppository
- lipase now normal. if not better consider MRCP to look better at the biliary tree and r/o divisum
- unclear if this may be related to phenobarbital
Subjective
Subjective
Date of Service: June 17, 2024
Pt had some indigestion last night, felt abdominal d/c but not sure if it was because she is getting constipated. walked around. still taking pain meds. better with semithicone
Objective
Data Reviewed
Laboratory Data:
Laboratory Results
06/15/24 07:46
06/16/24 05:14
Laboratory Results
Total Bilirubin 0.7 mg/dl (0.2-1.3) 06/15/24 07:46
AST 41 U/L (14-36) H 06/15/24 07:46
ALT 33 U/L (0-35) 06/15/24 07:46
Alkaline Phosphatase 151 U/L (38-126) H 06/15/24 07:46
Lipase 211 U/L (23-300) 06/16/24 05:14
Vital Signs and I&O:
Vital Signs
Temp Pulse Resp BP Pulse Ox
98.2 F 94 18 114/55 93
06/16/24 23:00 06/16/24 23:00 06/16/24 23:00 06/16/24 23:00 06/16/24 23:00
I&O
06/15/24 06/16/24 06/17/24
06:59 06:59 07:59
Intake Total 1240 / 1240 4400 / 4400 3580 / 3580
Balance 1240 / 1240 4400 / 4400 3580 / 3580
Physical Exam
Physical Exam
GI: Soft and Tender (mildly tender left mid/lower abdomen)
Neuro: Non Focal
[2024-06-17] MEDS: LR 1000 IV (06:08)
[2024-06-17 07:28] VITALS: BP 116/61
[2024-06-17] MEDS: PROTONIX IV 40 MG IV (07:40)
[2024-06-17] MEDS: LR IV (07:40)
[2024-06-17] MEDS: DULCOLAX 10 MG RECTAL (07:55)
--- NOTE | 2024-06-17 08:05 | PTCARENOTE ---
Addendum entered by Berenice Fried RN 06/17/24 08:22:
Discussed importance of incentive spirometry. Patient demonstrates understanding. Only able to achieve volume of 500ml on incentive spirometer.
Original Note:
Assumed care at 0700. VSS. Requiring 2L O2, satting 91-92%. Unable to wean off oxyugen or SaO2 drops to 88% on room air. Dr. Chin aware. Awaiting incentive spirometer from [facility]. Encouraged mobility, patient currently sitting in chair.
[2024-06-17 08:06] LABS: Hematocrit 35.2 % (37.0-47.0); Hemoglobin 11.9 g/dL (12.0-16.0); Mean Corp Hgb Conc. 33.8 g/dL (33.0-37.0); Mean Corpuscular Volume 94.6 fL (81.0-99.0); Mean Platelet Volume 11.9 fL (7.4-10.4); Platelet Count 171 10^3/uL (130-400); Red Blood Cell Count 3.72 10^6/uL (4.20-5.40); Red Cell Dist. Width 13.2 % (11.5-14.5); White Blood Cell Count 9.7 10^3/uL (4.8-10.8)
[2024-06-17] MEDS: TORADOL 15 MG IV ×2 (08:10→16:27)
[2024-06-17 09:16] LABS: ALT (SGPT) 17 U/L (0-35); AST (SGOT) 23 U/L (14-36); Albumin 2.8 g/dl (3.5-5.0); Alkaline Phosphatase 122 U/L (38-126); Blood Urea Nitrogen 4 mg/dl (7-17); Calcium 8.6 mg/dl (8.4-10.2); Carbon Dioxide 31 mmol/L (22-30); Chloride 100 mmol/L (98-107); Estimated Creatinine Clearance 76 ml/min; Glucose 123 mg/dl (70-99); Potassium 3.7 mmol/L (3.5-5.1); Sodium 134 mmol/L (135-145); Total Bilirubin 0.5 mg/dl (0.2-1.3); Total Protein 5.4 g/dl (6.3-8.2); eGFR > 60.00
--- NOTE | 2024-06-17 09:23 | W.PN.HOSP.TC ---
Addendum entered and electronically signed by Stephanie Chin MD 06/17/24 14:14:
Addendum
Evaluated the patient again, she tolerated lunch. She is complaining of lower back pain. Will add as needed Flexeril. She diuresed well after IV Lasix almost 1 L. Weaning off oxygen, currently on room air. Discussed with patient and her
, encourage ambulation.
End
Original Note:
Today's Communication/Plan
-
likely likely discharge in a.m.
Goal to wean off oxygen
IV Lasix for pulmonary congestion
Stop IV fluid
Advance diet as tolerated
Discussed with GI doctor later this morning, agreed to the plan
Assessment / Plan
Assessment / Plan
Physical Exam
General: Other (68y F in no acute distress.)
HEENT: Moist mucous membranes and PERRLA
Respiratory: Basal Rales, no wheezes.
Cardiac: S1/S2 and Regular Rhythm; No Murmur
GI: Soft, Non Distended, Normal Bowel Sounds. No tenderness on exam ( deep palpation)
Musculoskeletal: No Clubbing, No Cyanosis and No Edema
Neuro: AO x 3, she followed commands.
Psych: calm
Patient is a 68y F with PMH significant for seizure disorder who presents to ED complaining of abdominal pain.
Acute Pancreatitis
Abdominal pain is less
Lipase came down to normal
No leukocytosis
She denies nausea, she is tolerating oral intake
US and CT no biliary dilation.
Normal LFT
No history of recent new medications
No fever or leukocytosis
Patient does not have significant history of alcohol use / abuse.
CT without evidence of gallstones -
- GI evaluation for additional recommendations.
# Acute hypoxic respiratory insufficiency
No Chest pain or cough
Unable to wean off nasal O2
Chest x ray showing bilateral effusion/atelectasis with pulmonary congestion. Suspect noncardiogenic acute pulmonary edema secondary to acute illness and IV fluid
Will give IV Lasix
Hold further IV fluid as patient is tolerating orally
# Hyponatremia, mild
No confusion
# Seizure Disorder
- Stable. No seizure episodes since .
- Continue current phenobarb regimen without changes.
DVT Prophylaxis: SCDs
Code Status: Full
Total time spent to see the patient, examine the patient, review data and lab results, discuss treatment plan with patient and nursing staff around 55 minutes
Anticipated Discharge: Within 24 hours
Subjective/Interval History
-
Date of Service: June 17, 2024
Less abd pain
less nausea
Had SOB over night
Objective Data
-
Labs:
Laboratory Results
06/17/24 06/17/24
07:52 08:49
WBC 9.7
Hgb 11.9 L
Hct 35.2 L
Plt Count 171
Sodium Cancelled 134 L
Potassium Cancelled 3.7
Chloride Cancelled 100
Carbon Dioxide Cancelled 31 H
BUN Cancelled 4 L
Creatinine Cancelled 0.5 L
Glucose Cancelled 123 H
Calcium Cancelled 8.6
Total Bilirubin Cancelled 0.5
AST Cancelled 23
ALT Cancelled 17
Alkaline Phosphatase Cancelled 122
Vital Signs:
Vital Signs
Temp Pulse Resp BP Pulse Ox
100.0 F 92 18 116/61 92
06/17/24 07:28 06/17/24 07:28 06/17/24 07:28 06/17/24 07:28 06/17/24 07:45
I&O
06/16/24 06/17/24 06/18/24
05:59 06:59 06:59
Intake Total 510 / 510
Output Total 400 / 400
Balance 110 / 110
[2024-06-17] MEDS: LASIX 40 MG IV (10:11)
[2024-06-17] MEDS: MYLICON 80 MG PO ×2 (10:11→18:18)
[2024-06-17] MEDS: TYLENOL 650 MG PO (13:29)
--- NOTE | 2024-06-17 14:17 | PTCARENOTE ---
Weaned off oxygen, SaO2 92% on room air. Dr. Elsy barboza.
--- NOTE | 2024-06-17 14:29 | CM ---
CM reviewed medical records. Patient remains acutely ill. CM will continue to follow for needs.
[2024-06-17 15:22] VITALS: BP 120/73
[2024-06-17] MEDS: LUMINAL 129.6 MG PO (20:56)
[2024-06-17] MEDS: FLEXERIL 5 MG PO (20:56)
[2024-06-17 23:00] VITALS: BP 147/54
[2024-06-18] MEDS: TORADOL 15 MG IV (01:45)
--- NOTE | 2024-06-18 01:58 | PTCARENOTE ---
Patient with SOB with activity, Pulse ox 84-85 % on RA, applied oxygen at 2L n/c, sat-95%. will continue to monitor
[2024-06-18 06:00] VITALS: BMI 25.8
--- NOTE | 2024-06-18 06:51 | W.PN.UPDATE ---
Update Note
Progress Note Update
patient with c/o sob after activity, oxygen sat only- 85% on RA. Placed patient on 2l n/c.. yesterday she had a dose of lasix 40 IV X1 dose with almost 2L urine output. but today she gained almost 2.5 kg ( 65.8 to 68.2) Will add another Lasix 40 mg
IV x1.
[2024-06-18] MEDS: LASIX 40 MG IV ×2 (07:04→15:02)
[2024-06-18] MEDS: FLUSH (NSS) 1 FLUSH IV (07:43)
[2024-06-18] MEDS: NSS (PRESERVATIVE FREE) 10 ML IV (07:44)
[2024-06-18] MEDS: PROTONIX IV 40 MG IV (07:44)
[2024-06-18 08:00] VITALS: BP 119/83
[2024-06-18 08:27] LABS: Hematocrit 35.4 % (37.0-47.0); Hemoglobin 11.7 g/dL (12.0-16.0); Mean Corp Hgb Conc. 33.1 g/dL (33.0-37.0); Mean Corpuscular Hgb 32.7 pg (27.0-31.0); Mean Corpuscular Volume 98.9 fL (81.0-99.0); Mean Platelet Volume 12.6 fL (7.4-10.4); Platelet Count 153 10^3/uL (130-400); Red Blood Cell Count 3.58 10^6/uL (4.20-5.40); Red Cell Dist. Width 13.2 % (11.5-14.5); White Blood Cell Count 6.2 10^3/uL (4.8-10.8)
--- NOTE | 2024-06-18 08:30 | W.PN.HOSP.TC ---
Today's Communication/Plan
-
Cardiology eval. PT eval
Assessment / Plan
Assessment / Plan
Physical exam:
General: Well Developed, Well Nourished and mild apparent Distress
HEENT: Normocephalic, Atraumatic and Moist Mucous Membranes
Respiratory: Decreased breath sounds bilaterally in the bases; Negative Wheezes, Rales or Rhonchi
Cardiac: Regular Rhythm and S1/S2
GI: Soft, Nontender and Nondistended
Musculoskeletal: No Clubbing, No Cyanosis and some Edema
Neuro: Awake, Alert and Oriented, no neurological deficits
Psych: Calm
A/P:
Acute pancreatitis:
Improving
Lipase back to normal
Received IV fluid
On low residue diet
Appreciated GI consult who feels etiology was probably microlithiasis
Volume overload:
Due to extra IV fluid. Not sure if evidence of heart failure so we will ask cardiology for input
Repeat chest x-ray today and shows worsening bilateral pleural effusions-could be related to hypoalbuminemia, pancreatitis itself, or ultimately heart failure.
Obtain BNP today
Diuresis as needed and then might consider thoracentesis
Acute respiratory insufficiency:
Chest x-ray today
Oxygen as needed and wean as able
Cardio eval
Acute lower back pain:
Musculoskeletal
Lidoderm patch
PT eval
Pain control
Hyponatremia:
Improving
DVT prophylaxis:
On SCDs, but start Lovenox today
CODE STATUS:
Full code
Total time spent on today's encounter was 52 minutes which included time spent in counseling the patient/family regarding diagnosis and treatment plan as listed above, goals of care, and symptom management. Case was discussed with nursing staff,
specialists, and care coordinators/case management. All labs and imaging personally reviewed by me. Remainder the time spent in detailed review of previous records, lab data, imaging, and other medical provider documentation.
Anticipated Discharge: > 48 hours
Subjective/Interval History
-
Date of Service: June 18, 2024
Patient still having abdominal discomfort but much less than before. She is also having shortness of breath and peripheral edema and decreased exercise tolerance. Afebrile.
Objective Data
-
Labs:
Laboratory Results
06/18/24
07:15
WBC 6.2
Hgb 11.7 L
Hct 35.4 L
Plt Count 153
Sodium Pending
Potassium Pending
Chloride Pending
Carbon Dioxide Pending
BUN Pending
Creatinine Pending
Glucose Pending
Calcium Pending
Vital Signs:
Vital Signs
Temp Pulse Resp BP Pulse Ox
98.2 F 104 18 119/83 94
06/18/24 08:00 06/18/24 08:00 06/18/24 08:00 06/18/24 08:00 06/18/24 08:00
I&O
06/17/24 06/18/24 06/19/24
06:59 06:59 06:59
Intake Total 1230 / 1230
Output Total 2550 / 2550 700 / 700
Balance -1320 / -1320 -700 / -700
[2024-06-18 08:46] LABS: Blood Urea Nitrogen 5 mg/dl (7-17); Calcium 8.7 mg/dl (8.4-10.2); Carbon Dioxide 37 mmol/L (22-30); Chloride 99 mmol/L (98-107); Estimated Creatinine Clearance 76 ml/min; Glucose 100 mg/dl (70-99); Potassium 3.6 mmol/L (3.5-5.1); Sodium 138 mmol/L (135-145); Triglycerides 54 mg/dl (10-149); eGFR > 60.00
--- NOTE | 2024-06-18 09:08 | W.PN.GI.CBS2 ---
Today's Communication / Plan
-
continue low fat diet
Assessment / Plan
-
68 year old female with a history of seizure disorder admitted after sudden onset of severe epigastric pain, with her first episode of acute pancreatitis. Lipase was >[address] imaging revealed peripancreatic inflammatory changes consistent with
acute pancreatitis, without any pancreatic fluid collection noted. LFTs showed mildly elevated AST (52), normal ALT (30), T bili (0.7) and elevated alk phos (181), which she states is a chronically mildly elevated due to phenobarbital. She has no
known gallstones. No new medications or supplements. She does not smoke or use drugs. She does drink alcohol, about 1 glass of wine/night.
IMPRESSION / PLAN:
Acute pancreatitis, unclear etiology, ultrasound negative for stones
- tolerating low fat diet
- w/u negative though feel this was microlithiasis by the acute drop in lipase
- agree with continuing to diurese as she was fluid overloaded
will sign off
we will make her a f/u in our GI office and our staff will call her for that appointment. Pt aware
Subjective
Subjective
Date of Service: June 18, 2024
Pt has no abdominal pain, tolerated low fat diet Biggest issue is sob from all the fluid she received
Objective
Data Reviewed
Laboratory Data:
Laboratory Results
06/18/24 07:15
06/18/24 07:15
Laboratory Results
Total Bilirubin 0.5 mg/dl (0.2-1.3) 06/17/24 08:49
AST 23 U/L (14-36) 06/17/24 08:49
ALT 17 U/L (0-35) 06/17/24 08:49
Alkaline Phosphatase 122 U/L (38-126) 06/17/24 08:49
Lipase 211 U/L (23-300) 06/16/24 05:14
Vital Signs and I&O:
Vital Signs
Temp Pulse Resp BP Pulse Ox
98.2 F 104 18 119/83 94
06/18/24 08:00 06/18/24 08:00 06/18/24 08:00 06/18/24 08:00 06/18/24 08:00
I&O
06/17/24 06/18/24 06/19/24
06:59 06:59 06:59
Intake Total 1230 / 1230
Output Total 2550 / 2550 1100 / 1100
Balance -1320 / -1320 -1100 / -1100
Physical Exam
Physical Exam
GI: Soft and Non Tender
[2024-06-18 11:00] VITALS: BP 110/71; BP 79/58; PULSE 113; PULSE 99; O2SAT 93
[2024-06-18 11:22] LABS: NT-proBNP 183 pg/ml
--- NOTE | 2024-06-18 14:11 | CON.CAR ---
Addendum entered and electronically signed by Peter Altamirano DO 06/18/24 14:53:
I saw and examined the patient.
The [employer] Bonding Machine Operator's note was reviewed and I agree with the note.
Comment:
Plan:
Received 11 L IVF as part of tx for pancreatitis and now is volume overloaded.
Cont IV lasix diuresis and increase to lasix 40 mg IV BID
Check echo, prior echo EF was preserved.
EKG no acute changes
Troponins negative X 2.
Original Note:
Consultation
Consultation Request
Date/Time Consultation Requested: 06/18/24
Date/Time Consultation Performed: 06/18/24
Requesting Provider: Luke David
Performing Provider: Dr. Altamirano
Reason for Consultation: Acute HFpEF
Medical History
-
History of Present Illness:
Patient came to ER last with chest pain and was admitted with pancreatitis and cardiology is now consulted for acute HF. Patient was at home on when she started with substernal chest pain with radiation. In the ER patient was
eventually found to have elevated lipase and was admitted with pancreatitis. Patient was given 11 L of IVF's which were stopped on 06/17/24. Patient noted improved abdominal pain but increased bloating in that time and then increased SOB and was
given Lasix 40 mg IV x 1 on 06/17/2024 and 06/18/2024. Patient reports brisk diuresis, but only minimal improvement in SOB. Patient has never had pancreatitis before nor has she had acute HF. She had an echo back in 2018 that showed a preserved EF
and she reports that she was previously told she had MVP, but no evidence of this on the last echo. She was recently seen in the office 01/2024 for for risk factor assessment and the plan was to follow-up on some labs and perhaps order an echo at a
follow-up visit 07/2024. Currently patient reports ongoing BUNCH, but no recurrence of CP.
PMH:
h/o seizure disorder
Past Medical History
Past Medical History: Other (in HPI)
Past Surgical History: and Orthopedic
Social History
Tobacco: Former Smoker
Alcohol: Daily (1 glass of wine a day)
Drug: None
Personal:
Living: With Family
Family History
Family History: CAD and Hypertension
Allergies / Home Medications
Allergy/AdvReac Type Severity Reaction Status Date / Time
diphenhydramine HCl Allergy Unknown Verified 12/21/21 09:36
[From Benadryl]
�Medication �Instructions �Recorded �Confirmed �Type
fluticasone propionate 50 1 spray intranasal HS 06/14/24 06/14/24 History
mcg/actuation nasal
spray,suspension
phenobarbital 64.8 mg tablet 129.6 mg PO HS 06/14/24 06/14/24 History
therapeutic multivitamin 1 tab PO QPM 06/14/24 06/14/24 History
Review of Systems
-
History Source: Patient
All other systems: Negative unless noted
Physical Exam
Vital Signs
Temp Pulse Resp BP Pulse Ox
98.2 F 104 18 119/83 94
06/18/24 08:00 06/18/24 08:00 06/18/24 08:00 06/18/24 08:00 06/18/24 08:00
GEN: NAD. AAOx3
HEENT: EOMI, MMM
LUNGS: 2 L NC. No audible wheeze
CV: SR on tele. Reg
EXT: Trace B/L LE edema
NEURO: Gross non-focal
SKIN: Warm, dry and pink. No rash
Lab Results
06/18/24 07:15
06/18/24 07:15
Troponin I < 0.012 ng/ml 06/14/24 20:43
[facility] Pept 183 pg/ml 06/18/24 07:15
Impression / Plan
-
PCP: Dr. Nicolette Jones
Card: Dr. Jonas
Impression:
Admitted with chest pain and pancreatitis 06/14/24
Acute pancreatitis
Acute hypoxic respiratory insufficiency
Acute HFpEF
h/o seizure disorder
Echo 11/21/18: EF 55-60%, no WMA, normal diastolic function
Echo 06/18/24: Preliminarily EF normal and no significant valve disease
Plan:
-Patient came to ER last with chest pain and was admitted with pancreatitis and cardiology is now consulted for acute HF. Patient was at home on when she started with substernal chest pain with radiation. In the ER patient was
eventually found to have elevated lipase and was admitted with pancreatitis. Patient was given 11 L of IVF's which were stopped on 06/17/24. Patient noted improved abdominal pain but increased bloating in that time and then increased SOB and was
given Lasix 40 mg IV x 1 on 06/17/2024 and 06/18/2024. Patient reports brisk diuresis, but only minimal improvement in SOB. Patient has never had pancreatitis before nor has she had acute HF. She had an echo back in 2018 that showed a preserved EF
and she reports that she was previously told she had MVP, but no evidence of this on the last echo. She was recently seen in the office 01/2024 for for risk factor assessment and the plan was to follow-up on some labs and perhaps order an echo at a
follow-up visit 07/2024. Currently patient reports ongoing BUNCH, but no recurrence of CP.
-ECG x 2 reviewed by me shows SR without acute ST changes
-Troponin undetectable x 2 on admission and the CP on admission was likely pancreatitis
-GI notes reviewed and there is suspicion for possible microlithiasis as a source. GI has signed off and will follow-up with patient as an outpatient
-While patient was NPO she was given 11 L of IVF's which were eventually stopped yesterday. In this time weight increased 7 lbs, new symptoms of BUNCH and acute hypoxic respiratory insufficiency. Patient is responding to Lasix 40 mg IV x 1 yesterday
and again today. Will give an additional dose of Lasix 40 mg IV x 1 at 1600 today and then 40 mg IV BID starting tomorrow.
-Await final echo report, but EF previously preserved
-Not clear that patient should had GDMT added in this scenario as this is iatrogenic HF due to IVF's in the setting of acute pancreatitis
--- NOTE | 2024-06-18 14:17 | CM ---
CM reviewed chart
PT eval VN recs vs no needs
Pt remains on 2L O2
May benefit from home O2 eval prior to dc
CM will continue to follow for dc planning
Discharge Dispositio- home, follow for possible VN and O2 needs
[2024-06-18] MEDS: TYLENOL 1000 MG PO ×2 (14:32→21:34)
[2024-06-18] MEDS: LIDOCAINE 4% PATCH 1 PATCH TOPICAL (14:32)
[2024-06-18 14:55] VITALS: BP 116/73; BP 89/57; PULSE 103; PULSE 111
[2024-06-18] MEDS: ProAmatine 2.5 MG PO (15:01)
[2024-06-18 15:13] VITALS: BP 123/65
[2024-06-18] MEDS: LOVENOX 40 MG SC (17:43)
[2024-06-18 19:12] VITALS: BP 116/70
[2024-06-18] MEDS: LUMINAL 129.6 MG PO (21:34)
--- NOTE | 2024-06-18 21:39 | PTCARENOTE ---
Patient requesting for lidocaine patch to be removed later in the night as it got applied afternoon. will continue to monitor.
[2024-06-18 23:04] VITALS: BP 111/67
[2024-06-19 03:55] VITALS: BP 126/68
[2024-06-19] MEDS: TYLENOL 1000 MG PO ×3 (04:59→21:32)
[2024-06-19 06:00] VITALS: BMI 25.2
[2024-06-19 07:56] LABS: Blood Urea Nitrogen 14 mg/dl (7-17); Carbon Dioxide 40 mmol/L (22-30); Chloride 98 mmol/L (98-107); Estimated Creatinine Clearance 76 ml/min; Glucose 115 mg/dl (70-99); Potassium 3.8 mmol/L (3.5-5.1); Sodium 140 mmol/L (135-145); eGFR > 60.00
[2024-06-19] MEDS: PROTONIX 40 MG PO (07:58)
[2024-06-19] MEDS: LASIX 40 MG IV ×2 (07:58→15:57)
[2024-06-19 08:00] VITALS: BP 111/70
--- NOTE | 2024-06-19 08:23 | W.PN.HOSP.TC ---
Today's Communication/Plan
-
IV Lasix.
Assessment / Plan
Assessment / Plan
Physical exam:
General: Well Developed, Well Nourished and no apparent Distress
HEENT: Normocephalic, Atraumatic and Moist Mucous Membranes
Respiratory: Decreased breath sounds bilaterally in the bases; Negative Wheezes, Rales or Rhonchi
Cardiac: Regular Rhythm and S1/S2
GI: Soft, Nontender and Nondistended
Musculoskeletal: No Clubbing, No Cyanosis and some Edema
Neuro: Awake, Alert and Oriented, no neurological deficits
Psych: Calm
A/P:
Acute pancreatitis:
Improving
Lipase back to normal
Received IV fluid
On low residue diet
Appreciated GI consult who feels etiology was probably microlithiasis
Volume overload/acute diastolic heart failure/bilateral pleural effusions:
IV Lasix 40 mg twice a day
Cardiology consult appreciated
Echocardiogram normal EF
Plan to repeat chest x-ray in a.m.
Acute respiratory insufficiency:
Chest x-ray reviewed and bilateral pleural effusions are worsened from yesterday
Oxygen as needed and wean as able
Acute lower back pain:
Musculoskeletal
Lidoderm patch
PT eval
Pain control
Hyponatremia:
Improved
DVT prophylaxis:
Continue Lovenox SQ
CODE STATUS:
Full code
Total time spent on today's encounter was 52 minutes which included time spent in counseling the patient/family regarding diagnosis and treatment plan as listed above, goals of care, and symptom management. Case was discussed with nursing staff,
specialists, and care coordinators/case management. All labs and imaging personally reviewed by me. Remainder the time spent in detailed review of previous records, lab data, imaging, and other medical provider documentation.
Anticipated Discharge: 24 - 48 hours
Subjective/Interval History
-
Date of Service: June 19, 2024
Patient feels better overall. Less shortness of breath. Still on oxygen. Able to eat and drink much better today. Back pain improved as well.
Objective Data
-
Labs:
Laboratory Results
06/19/24
06:59
Sodium 140
Potassium 3.8
Chloride 98
Carbon Dioxide 40 H
BUN 14
Creatinine 0.6
Glucose 115 H
Calcium 9.0
Vital Signs:
Vital Signs
Temp Pulse Resp BP Pulse Ox
98.1 F 83 16 111/70 95
06/19/24 03:55 06/19/24 03:55 06/19/24 03:55 06/19/24 07:58 06/19/24 03:55
I&O
06/18/24 06/19/24 06/20/24
06:59 06:59 06:59
Intake Total 1230 / 1230 480 / 480 480 / 480
Output Total 2550 / 2550 1350 / 1350
Balance -1320 / -1320 -870 / -870 480 / 480
[2024-06-19 11:55] VITALS: BP 111/68
[2024-06-19] MEDS: LIDOCAINE 4% PATCH TOPICAL (13:18)
--- NOTE | 2024-06-19 13:58 | W.PN.CARDCBS ---
Addendum entered and electronically signed by Herman Vasquez MD 06/19/24 18:50:
68-year-old woman with pancreatitis and subsequent acute HFpEF and respiratory insufficiency. Some chest discomfort, but troponin negative x 2. Currently she feels well.
PMH: Seizure disorder
Medications: Phenobarbital, toppers well, Lovenox, furosemide 40 IV twice daily, lidocaine patch
111/72, pulse 85, respirate 16, afebrile Intake and output -1.4 L, weight is 66.4 kg, if accurate down 1.8 kg, no distress sitting comfortably eating, at bedside, diminished breath sounds in bases, neck veins still modestly up, regular rate
and rhythm without obvious murmurs, abdomen benign extremities without much edema
proBNP on June 18 was 183,
ECG normal
BUN/creatinine 14 and 0.6, CO2 is 40, potassium 3.8
Chest x-ray yesterday, bilateral effusions
EF 60-65%, no significant valvular heart disease, could not determine pulmonary artery systolic pressure
Plan:
Overall she looks well, although her neck veins are still up a bit and as of yesterday on her chest x-ray showed impressive effusions that may be related more to sub-diaphragmatic inflammation than heart failure. Her proBNP was never significantly
elevated..
Her weight has dropped roughly 2 kg from its peak, but she is still 5 kg above dry weight. However her bicarbonate is up to 40, suggesting that intravascularly she may be fairly dry.
I will hold a.m. Lasix until she is assessed. I asked her to move around more, and if she has significant dyspnea we can repeat her chest x-ray, consider thoracentesis etc. but would I prefer to hold off if possible.
Hopefully to be discharged on a low-dose of Lasix which can subsequently be discontinued. She will need a follow-up chest x-ray.
We will arrange for cardiac follow-up.
Original Note:
Today's Communication / Plan
-
Cont Lasix 40 mg IV BID
Midodrine PRN
Impression / Plan
-
PCP: Dr. Nicolette Jones
Card: Dr. Jonas
Impression:
Admitted with chest pain and pancreatitis 06/14/24
Acute pancreatitis
Acute hypoxic respiratory insufficiency
Acute HFpEF
h/o seizure disorder
Echo 11/21/18: EF 55-60%, no WMA, normal diastolic function
Echo 06/18/24: EF 60 to 65%, no WMA, no significant valve disease
Plan:
-Weight is down 4 lbs overnight, but remains on 2 L NC.
-On CXR 06/18/2024 there is evidence of a moderate-sized left pleural effusion and a small right pleural effusion. Recheck two-view CXR in AM and if persistent pleural effusion would consider for thoracentesis. On auscultation 06/19/2024 patient
still with diminished breath sounds at bases B/L
-EF preserved by echo without significant valve disease. This appears to be iatrogenic HF due to IVF's (11 L IVFs given) in the setting of acute pancreatitis
-Continue with Lasix 40 mg IV BID. Patient was not taking a diuretic prior to admission. Pending response to diuresis the patient may not need a diuretic upon D/C to home
-Troponin undetectable x 2 on admission and the CP on admission was likely pancreatitis
-GI notes reviewed and there is suspicion for possible microlithiasis as a source. GI has signed off and will follow-up with patient as an outpatient
-Not clear that patient should had GDMT added in this scenario as this is iatrogenic HF due to IVF's in the setting of acute pancreatitis
HPI: Patient came to ER last with chest pain and was admitted with pancreatitis and cardiology is now consulted for acute HF. Patient was at home on when she started with substernal chest pain with radiation. In the ER patient
was eventually found to have elevated lipase and was admitted with pancreatitis. Patient was given 11 L of IVF's which were stopped on 06/17/24. Patient noted improved abdominal pain but increased bloating in that time and then increased SOB and was
given Lasix 40 mg IV x 1 on 06/17/2024 and 06/18/2024. Patient reports brisk diuresis, but only minimal improvement in SOB. Patient has never had pancreatitis before nor has she had acute HF. She had an echo back in 2018 that showed a preserved EF
and she reports that she was previously told she had MVP, but no evidence of this on the last echo. She was recently seen in the office 01/2024 for for risk factor assessment and the plan was to follow-up on some labs and perhaps order an echo at a
follow-up visit 07/2024. Currently patient reports ongoing BUNCH, but no recurrence of CP.
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
Subjective
Date of Service: June 19, 2024
patient was able to have a 15-minute conversation without SOB while her oxygen was off after using the bathroom earlier today
Objective
Labs:
06/18/24 07:15
06/19/24 06:59
Labs
Hgb 11.7 g/dL (12.0-16.0) L 06/18/24 07:15
Hct 35.4 % (37.0-47.0) L 06/18/24 07:15
Plt Count 153 10^3/uL (130-400) 06/18/24 07:15
Sodium 140 mmol/L (135-145) 06/19/24 06:59
Potassium 3.8 mmol/L (3.5-5.1) 06/19/24 06:59
BUN 14 mg/dl (7-17) 06/19/24 06:59
Creatinine 0.6 mg/dL (0.6-1.0) 06/19/24 06:59
Glucose 115 mg/dl (70-99) H 06/19/24 06:59
Vital Signs and I&O:
Vital Signs
Temp Pulse Resp BP Pulse Ox
98.4 F 88 18 111/68 94
06/19/24 11:55 06/19/24 11:55 06/19/24 11:55 06/19/24 11:55 06/19/24 11:55
Vital Signs
Temp Pulse Resp BP Pulse Ox
98.4 F 88 18 111/68 94
06/19/24 11:55 06/19/24 11:55 06/19/24 11:55 06/19/24 11:55 06/19/24 11:55
Intake & Output
06/17/24 06/18/24 06/19/24 06/20/24
06:59 06:59 06:59 06:59
Intake Total 1230 / 1230 480 / 480 480 / 480
Output Total 2550 / 2550 1350 / 1350 1250 / 1250
Balance -1320 / -1320 -870 / -870 -770 / -770
Physical Exam
Physical Exam
GEN: NAD. AAOx3
HEENT: EOMI, MMM
LUNGS: 2 L NC. No audible wheeze
CV: SR on tele. Reg
EXT: Trace B/L LE edema
NEURO: Gross non-focal
SKIN: Warm, dry and pink. No rash
[2024-06-19 15:25] VITALS: BMI 25.2
[2024-06-19] MEDS: LOVENOX 40 MG SC (15:55)
[2024-06-19 15:59] LABS: IgG Subclass 4 12 mg/dL (1-123)
[2024-06-19 16:00] VITALS: BP 111/72
[2024-06-19 19:42] VITALS: BP 154/73
[2024-06-19] MEDS: LIDOCAINE 4% PATCH 1 PATCH TOPICAL (19:44)
[2024-06-19] MEDS: LUMINAL 129.6 MG PO (21:32)
[2024-06-19] MEDS: ULTRAM 50 MG PO (21:34)
[2024-06-19 23:01] VITALS: BP 131/71
[2024-06-20] VITALS (9 sets, daily range): BP systolic 84–145; BP diastolic 63–95; BMI 24.8
[2024-06-20] MEDS: ULTRAM 25 MG PO (04:37)
[2024-06-20] MEDS: TYLENOL 1000 MG PO ×3 (06:44→21:41)
[2024-06-20 07:53] LABS: Blood Urea Nitrogen 14 mg/dl (7-17); Calcium 9.2 mg/dl (8.4-10.2); Chloride 93 mmol/L (98-107); Estimated Creatinine Clearance 76 ml/min; Glucose 100 mg/dl (70-99); Potassium 3.7 mmol/L (3.5-5.1); Sodium 138 mmol/L (135-145); eGFR > 60.00
[2024-06-20 08:13] LABS: Carbon Dioxide 38 mmol/L (22-30)
[2024-06-20] MEDS: PROTONIX 40 MG PO (08:13)
--- NOTE | 2024-06-20 08:32 | W.PN.HOSP.TC ---
Addendum entered and electronically signed by Juan David MD 06/20/24 13:05:
IR will be able to do likely right thoracentesis rather than left.
Original Note:
Today's Communication/Plan
-
Possible thoracentesis or resume IV diuresis.
Assessment / Plan
Assessment / Plan
Physical exam:
General: Well Developed, Well Nourished and no apparent Distress
HEENT: Normocephalic, Atraumatic and Moist Mucous Membranes
Respiratory: Decreased breath sounds bilaterally in the bases; Negative Wheezes, few Rales in the left base and no Rhonchi
Cardiac: Regular Rhythm and S1/S2
GI: Soft, Nontender and Nondistended
Musculoskeletal: No Clubbing, No Cyanosis and some Edema
Neuro: Awake, Alert and Oriented, no neurological deficits
Psych: Calm
A/P:
Acute pancreatitis:
Improved
Lipase back to normal
Received IV fluid
On low residue diet
Appreciated GI consult who feels etiology was probably microlithiasis
Volume overload/acute diastolic heart failure/bilateral pleural effusions:
Holding IV Lasix by cardiology today
Cardiology consult appreciated
Echocardiogram normal EF
Possible thoracentesis-see below
Assess for home oxygen need
Acute hypoxic respiratory failure:
Chest x-ray reviewed and bilateral pleural effusions appear better today. Discussed with cardiology today. Discussed with IR today for possibility of left thoracentesis.
If not thoracentesis, she might require to go back to IV diuresis.
Oxygen as needed and wean as able
Acute lower back pain:
Musculoskeletal
Lidoderm patch
PT eval
Pain control
Hyponatremia:
Improved
DVT prophylaxis:
Continue Lovenox SQ
CODE STATUS:
Full code
Total time spent on today's encounter was 52 minutes which included time spent in counseling the patient/family regarding diagnosis and treatment plan as listed above, goals of care, and symptom management. Case was discussed with nursing staff,
specialists, and care coordinators/case management. All labs and imaging personally reviewed by me. Remainder the time spent in detailed review of previous records, lab data, imaging, and other medical provider documentation.
Anticipated Discharge: 24 - 48 hours
Subjective/Interval History
-
Date of Service: June 20, 2024
Feels better overall but still with some dyspnea and requiring oxygen. Pulse ox 88 to 89% on room air at rest. Afebrile
Objective Data
-
Labs:
Laboratory Results
06/20/24
06:52
Sodium 138
Potassium 3.7
Chloride 93 L
Carbon Dioxide 38 H
BUN 14
Creatinine 0.6
Glucose 100 H
Calcium 9.2
Vital Signs:
Vital Signs
Temp Pulse Resp BP Pulse Ox
97.9 F 77 19 134/64 94
06/20/24 07:30 06/20/24 07:30 06/20/24 07:30 06/20/24 07:30 06/20/24 07:35
I&O
06/19/24 06/20/24 06/21/24
06:59 06:59 06:59
Intake Total 480 / 480 960 / 960
Output Total 1350 / 1350 2950 / 2950
Balance -870 / -870 -1989 /
--- NOTE | 2024-06-20 11:00 | W.PN.CARDCBS ---
Addendum entered and electronically signed by Kael Krishnan MD 06/20/24 15:16:
I saw and examined the patient.
The Craft Superintendent's note was reviewed and I agree with the note.
Comment: Briefly, 68-year-old woman presenting with acute pancreatitis who developed iatrogenic volume overload following fluid resuscitation.
From a GI standpoint seems to be doing better, her appetite is back and she has been tolerating low residue diet.
In regards to her volume overload, had been receiving IV Lasix with improvement in her symptoms but diuretics were held due to contraction alkalosis.
As she was still requiring supplemental oxygen earlier today thoracentesis was performed and following this patient tells me that she feels significantly better.
Oxygen sats in the mid 90s at the time of my evaluation on room air.
As she is significantly improved with a thoracentesis okay to hold off on additional Lasix today and can reevaluate in the morning.
Would consider oral Lasix 40mg daily which could be continued for a short period of time at home, but would not need to be a long-term medication.
Rest per Maral Eaton
Original Note:
Today's Communication / Plan
-
Appreciate help of hospitalist attending coordinating IR consult for residual left pleural effusion
Ongoing hypoxia so pending thoracentesis results will restart Lasix IV
Impression / Plan
-
PCP: Dr. Nicolette Jones
Card: Dr. Jonas
Impression:
Admitted with chest pain and pancreatitis 06/14/24
Acute pancreatitis
Acute hypoxic respiratory insufficiency
Acute HFpEF
h/o seizure disorder
Echo 11/21/18: EF 55-60%, no WMA, normal diastolic function
Echo 06/18/24: EF 60 to 65%, no WMA, no significant valve disease
Plan:
-Weight is down another 2 lbs overnight for a total of at least 6 lbs diuresed this admission.
-CXR repeated 06/20/24 and shows improved B/L pleural effusions, but still looks moderate on the left. TT to hospitalist attending and appreciate the chance to discuss, they will ask IR to evaluate for possible thoracentesis
-Attempted to wean oxygen and patient was 88% on RA so oxygen at 2 L reapplied. Patient was not using oxygen at home prior to admission.
-Bicarbonate was up to 40 on 06/19/24 so Lasix 40 mg IV BID dose was held 06/20/24 AM. Bicarb improved to 38 on 06/20/24, labs reviewed by me
-Pending outcome of IR evaluation will restart Lasix IV. Patient was not taking a diuretic prior to admission.
-EF preserved by echo without significant valve disease. This appears to be iatrogenic HF due to IVF's (11 L IVFs given) in the setting of acute pancreatitis
-Not clear that patient should had GDMT added in this scenario as this is iatrogenic HF due to IVF's in the setting of acute pancreatitis
-Troponin undetectable x 2 on admission and the CP on admission was likely pancreatitis
-GI notes reviewed and there is suspicion for possible microlithiasis as a source. GI has signed off and will follow-up with patient as an outpatient
HPI: Patient came to ER last with chest pain and was admitted with pancreatitis and cardiology is now consulted for acute HF. Patient was at home on when she started with substernal chest pain with radiation. In the ER patient
was eventually found to have elevated lipase and was admitted with pancreatitis. Patient was given 11 L of IVF's which were stopped on 06/17/24. Patient noted improved abdominal pain but increased bloating in that time and then increased SOB and was
given Lasix 40 mg IV x 1 on 06/17/2024 and 06/18/2024. Patient reports brisk diuresis, but only minimal improvement in SOB. Patient has never had pancreatitis before nor has she had acute HF. She had an echo back in 2018 that showed a preserved EF
and she reports that she was previously told she had MVP, but no evidence of this on the last echo. She was recently seen in the office 01/2024 for for risk factor assessment and the plan was to follow-up on some labs and perhaps order an echo at a
follow-up visit 07/2024. Currently patient reports ongoing BUNCH, but no recurrence of CP.
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
Subjective
Date of Service: June 20, 2024
Still SOB, worse with exertion of talking
Objective
Labs:
06/18/24 07:15
06/20/24 06:52
Labs
Hgb 11.7 g/dL (12.0-16.0) L 06/18/24 07:15
Hct 35.4 % (37.0-47.0) L 06/18/24 07:15
Plt Count 153 10^3/uL (130-400) 06/18/24 07:15
Sodium 138 mmol/L (135-145) 06/20/24 06:52
Potassium 3.7 mmol/L (3.5-5.1) 06/20/24 06:52
BUN 14 mg/dl (7-17) 06/20/24 06:52
Creatinine 0.6 mg/dL (0.6-1.0) 06/20/24 06:52
Glucose 100 mg/dl (70-99) H 06/20/24 06:52
Vital Signs and I&O:
Vital Signs
Temp Pulse Resp BP Pulse Ox
97.9 F 77 19 134/64 94
06/20/24 07:30 06/20/24 07:30 06/20/24 07:30 06/20/24 07:30 06/20/24 07:35
Vital Signs
Temp Pulse Resp BP Pulse Ox
97.9 F 77 19 134/64 94
06/20/24 07:30 06/20/24 07:30 06/20/24 07:30 06/20/24 07:30 06/20/24 07:35
Intake & Output
06/18/24 06/19/24 06/20/24 06/21/24
06:59 06:59 06:59 06:59
Intake Total 1230 / 1230 480 / 480 960 / 960
Output Total 2550 / 2550 1350 / 1350 2950 / 2950
Balance -1320 / -1320 -870 / -870 -1989 /
Physical Exam
Physical Exam
GEN: NAD. AAOx3
HEENT: EOMI, MMM
LUNGS: 2 L NC. No audible wheeze
CV: SR on tele. Reg
EXT: Trace B/L LE edema
NEURO: Gross non-focal
SKIN: Warm, dry and pink. No rash
[2024-06-20 14:33] LABS: Body Fluid pH 7.47
[2024-06-20 14:44] LABS: Body Fluid Glucose 106 mg/dl; Body Fluid Protein 3.8 g/dl
[2024-06-20 15:54] LABS: Body Fluid Mononuclear 90.7 %; Body Fluid Polymorphonuclear 9.3 %; Body Fluid WBC 636 /CUMM
[2024-06-20 15:57] LABS: Body Fluid Second Tech FB
[2024-06-20] MEDS: LOVENOX 40 MG SC (18:18)
[2024-06-20] MEDS: MYLICON 80 MG PO (20:13)
[2024-06-20] MEDS: LIDOCAINE 4% PATCH 1 PATCH TOPICAL (20:13)
[2024-06-20] MEDS: LUMINAL 129.6 MG PO (21:41)
[2024-06-20] MEDS: ULTRAM 50 MG PO (21:42)
[2024-06-21 03:05] VITALS: BP 128/65
[2024-06-21] MEDS: TYLENOL PO (05:57)
[2024-06-21 06:00] VITALS: BMI 24.2
[2024-06-21 07:23] VITALS: BP 126/70
[2024-06-21 07:39] LABS: Blood Urea Nitrogen 9 mg/dl (7-17); Calcium 8.8 mg/dl (8.4-10.2); Carbon Dioxide 37 mmol/L (22-30); Chloride 97 mmol/L (98-107); Estimated Creatinine Clearance 76 ml/min; Glucose 96 mg/dl (70-99); Potassium 3.2 mmol/L (3.5-5.1); Sodium 138 mmol/L (135-145); eGFR > 60.00
[2024-06-21] MEDS: PROTONIX 40 MG PO (08:25)
--- NOTE | 2024-06-21 08:33 | W.PN.HOSP.TC ---
Addendum entered and electronically signed by Juan David MD 06/21/24 16:03:
Acute hypoxic respiratory failure is not a valid diagnosis upon admission but acute hypoxic respiratory failure is a valid diagnosis after she was hospitalized since she required increased amount of oxygen and was tachypneic and had use of accessory
muscles of respiration upon exam and has respiratory distress and required oxygen and required IV Lasix and Thoracentesis and now resolved and she is back to room air and no dyspneic anymore and no respiratory distress.
Original Note:
Today's Communication/Plan
-
Discharge planning
Assessment / Plan
Assessment / Plan
Physical exam:
General: Well Developed, Well Nourished and No Apparent Distress
HEENT: Normocephalic, Atraumatic and Moist Mucous Membranes
Respiratory: Clear to Auscultation; Negative Wheezes, Rales or Rhonchi
Cardiac: Regular Rhythm and S1/S2
GI: Soft, Nontender and Nondistended
Musculoskeletal: No Clubbing, No Cyanosis and No Edema
Neuro: Awake, Alert and Oriented
Psych: Calm
A/P:
Acute pancreatitis:
Improved
Lipase back to normal
Received IV fluid
On low residue diet
Appreciated GI consult who feels etiology was probably microlithiasis
Volume overload/acute diastolic heart failure/bilateral pleural effusions:
Back to her normal symptomatically and on room air
Can consider outpatient diuretics
Plan to discharge today
Prior to today:
Holding IV Lasix by cardiology prior
Cardiology consult appreciated
Echocardiogram normal EF
Possible thoracentesis-see below
Assess for home oxygen need
Acute hypoxic respiratory failure:
Chest x-ray reviewed and bilateral pleural effusions appear better today. Discussed with cardiology. Discussed with IR yesterday and status post right thoracentesis.
Acute lower back pain:
Musculoskeletal
Lidoderm patch
PT eval
Pain control
Hyponatremia:
Improved
DVT prophylaxis:
Continue Lovenox SQ
CODE STATUS:
Full code
Anticipated Discharge: Today
Subjective/Interval History
-
Date of Service: June 21, 2024
Patient feels well. On room air today. Afebrile
Objective Data
-
Labs:
Laboratory Results
06/21/24
06:55
Sodium 138
Potassium 3.2 L
Chloride 97 L
Carbon Dioxide 37 H
BUN 9
Creatinine 0.5 L
Glucose 96
Calcium 8.8
Vital Signs:
Vital Signs
Temp Pulse Resp BP Pulse Ox
98.4 F 83 18 126/70 93
06/21/24 07:23 06/21/24 07:23 06/21/24 07:23 06/21/24 07:23 06/21/24 07:23
I&O
06/20/24 06/21/24 06/22/24
06:59 06:59 06:59
Intake Total 960 / 960 1700 / 1700
Output Total 2950 / 2950 1999 / 1999
Balance -1989 / -1989 -300 / -300
[2024-06-21] MEDS: KCL 40 MEQ PO (09:15)
--- NOTE | 2024-06-21 11:58 | W.DCSUMMARY ---
Discharge Summary
Discharge Data
Date of Admission: 06/15/24
Date of Discharge: 06/21/24
-
Pending Results: No
Hospital Course
Patient is 68 years of with medical history of seizure disorder came into the hospital abdominal pain and found to have acute pancreatitis. GI was consulted. She was given IV fluid and bowel rest and pain medications. The etiology of pancreatitis
was not entirely clear and GI thinks probably microlithiasis but further evaluation will be continued. She was able to tolerate diet and did well. Course complicated with hypoxic respiratory failure that was felt to be related to volume overload
from aggressive hydration. Cardiology consulted. She was aggressively diuresed. She had an echocardiogram with normal ejection fraction. She also had pleural effusions and required right thoracentesis. Further test results from thoracentesis
can be follow-up as outpatient. Her respiratory status improved and she was able to come off oxygen. There was consideration of diuretics upon discharge but since she is doing well after thoracentesis and she is asymptomatic and pulse ox normal on
room air she does not need diuretic but can be reconsidered as outpatient if increased weight gain or short of breath or hypoxia recurs. Electrolytes replaced accordingly. Otherwise, patient is hemodynamically stable and she is stable to be
discharged today and she will follow-up with primary care physician, GI, and cardiology as outpatient. No other events were noticed.
Discharge duration: 35 minutes
Discharge Plan
-
Patient Disposition: Home (Routine Discharge)
Discharge Diagnosis/Procedures: Acute pancreatitis. Acute hypoxic respiratory failure due to acute diastolic congestive heart failure/volume overload/pleural effusions.
Condition: Good
Diet: Low Cholesterol, 2 Gram Sodium and Restrict fluids to 64 oz
Activity: As tolerated
Blood Work: Please PCP to order CBC, BMP within 1 week
Referrals:
Primary care, provider [Other] (See less than 1 week)
Ross Gore MD [Active] - in three to four weeks
Peter Altamirano DO [Active] - in two to three weeks
Prescriptions:
Continued
fluticasone propionate 50 mcg/actuation [place],Suspension
1 spray INTRANASAL HS
therapeutic multivitamin Tablet
1 tab PO QPM
phenobarbital 64.8 mg Tablet
129.6 mg PO HS
Discharge Orders:
Discharge Patient (As Directed); Ordered 06/21/24
Ordered By: Juan David
Discharge Date and Time
Discharge Date/Time: 06/21/24 14:03
Print Language: BELGIAN
--- NOTE | 2024-06-21 12:56 | CM ---
CM reviewed medical records. Plan for discharge to home. No needs noted
PLAN: home no needs.
[2024-06-21 13:30] VITALS: BP 122/68
--- NOTE | 2024-06-21 15:22 | PN.CDI ---
CDI
- -
CDI:
Physician Documentation Request
Admit Date: 06/15/24 00:58
Dear Doctor Frankie,
Patient admitted with acute pancreatitis.
ED note, 'Resp: No accessory muscle use, no increased work of breathing, lungs clear to auscultation bilaterally.'
Patient on O2 2L [place] throughout hospital stay.
Based on the above indicators and oxygen use, please clarify the following:
Acute hypoxic respiratory failure is not a valid diagnosis
Acute hypoxic respiratory failure is a valid diagnosis
Other
Use of terms such as suspected, likely, concern for, or probable (associated with a specific diagnosis that is being evaluated, monitored, or treated as if it exists) are acceptable and can be coded in the inpatient setting, when documented at the
time of discharge.
Thank you,
Cary DENSON,RN,CCDS
CDI Specialist
Available via [place] text
Please use your independent medical judgment in providing your response.
--- NOTE | 2024-06-21 15:35 | PN.CDI ---
CDI
- -
CDI:
Physician Documentation Request
Admit Date: 06/15/24 00:58
Dear Doctor Frankie,
Patient admitted with acute pancreatitis.
ED note, 'Resp: No accessory muscle use, no increased work of breathing, lungs clear to auscultation bilaterally.'
Patient on O2 2L [place] throughout hospital stay.
Based on the above indicators and oxygen use, please clarify the following:
Acute hypoxic respiratory failure is a valid diagnosis ( please include supporting documentation in your PN)
Acute hypoxic respiratory failure is not a valid diagnosis
Other
Use of terms such as suspected, likely, concern for, or probable (associated with a specific diagnosis that is being evaluated, monitored, or treated as if it exists) are acceptable and can be coded in the inpatient setting, when documented at the
time of discharge.
Thank you,
Cary DENSON,RN,CCDS
CDI Specialist
Available via [place] text
Please use your independent medical judgment in providing your response.
== END 2024-06-21 14:03 | disposition home or self-care (01) | DRG 438 ==
LOC: 1 ACUTE 00:58
PROVIDERS: Internal Medicine; Radiology Diagnostic Radiology; Student in an Organized Health Care Education/Training Program; ADMITTING PHYSICIAN Hospitalist; ATTENDING PHYSICIAN Hospitalist; CONSULT PHYSICIAN Internal Medicine; CONSULT PHYSICIAN Nuclear Medicine Nuclear Cardiology; EMERGENCY PHYSICIAN Emergency Medicine
PROC: 0W993ZZ Drainage of Right Pleural Cavity, Percutaneous Approach (ICD-10-PCS; 2024-06-20)
DX: K85.90 Acute pancreatitis without necrosis or infection, unspecified (principal); I50.31 Acute diastolic (congestive) heart failure; J96.01 Acute respiratory failure with hypoxia; E87.1 Hypo-osmolality and hyponatremia; J91.8 Pleural effusion in other conditions classified elsewhere; G40.909 Epilepsy, unspecified, not intractable, without status epilepticus; E78.00 Pure hypercholesterolemia, unspecified; I95.9 Hypotension, unspecified; M54.50 Low back pain, unspecified; Z87.891 Personal history of nicotine dependence; Z79.899 Other long term (current) drug therapy; Z11.52 Encounter for screening for COVID-19
CPT/HCPCS: 88305; 32555; 71045; 71046; 74177; 76700; 80048; 80053; 82248; 82787; 82945; 83690; 83735; 83880; 83986; 84157; 84478; 84484; 85025; 85027; 86803; 87015; 87040; 87070; 87205; 88112; 89051; 93005; 93306; 94640; 96361; 96374; 96375; 97110; 97163; 97530; 99285; Q9967

== ENCOUNTER 2024-08-06 06:23 | Day surgery (SDC) | payer OTHER, SELFPAY | END 2024-08-06 14:01 | disposition home or self-care (01) | LOC: GI 06:23 | PROVIDERS: ATTENDING PHYSICIAN Internal Medicine; FAMILY PHYSICIAN Student in an Organized Health Care Education/Training Program | DX: Z12.11 Encounter for screening for malignant neoplasm of colon (principal); K29.70 Gastritis, unspecified, without bleeding; R10.13 Epigastric pain; D12.2 Benign neoplasm of ascending colon; D12.3 Benign neoplasm of transverse colon; K63.5 Polyp of colon; K62.1 Rectal polyp; K22.89 Other specified disease of esophagus | CPT/HCPCS: 45385; 45380; 43239; 88305; 88342 ==

== ENCOUNTER → 2024-08-27 09:37 | Outpatient (REF) | payer OTHER, SELFPAY | LOC: MRI 09:37 | PROVIDERS: ATTENDING PHYSICIAN Internal Medicine; FAMILY PHYSICIAN Student in an Organized Health Care Education/Training Program | DX: R74.8 Abnormal levels of other serum enzymes (principal); K85.90 Acute pancreatitis without necrosis or infection, unspecified | CPT/HCPCS: 74183; A9575 ==

== ENCOUNTER → 2024-11-15 11:11 | Outpatient (REF) | payer OTHER, SELFPAY | LOC: WDC 11:11 | PROVIDERS: ATTENDING PHYSICIAN Student in an Organized Health Care Education/Training Program | DX: Z12.31 Encounter for screening mammogram for malignant neoplasm of breast (principal) | CPT/HCPCS: 77063; 77067 ==